=== PATIENT | female | born 1995 | race Hispanic/Latino ===

== ENCOUNTER 2021-06-23 12:02 | Emergency (ER) | payer BC, SELFPAY ==
[2021-06-23] MEDS ORDERED: Dexamethasone 10 MG/ML VIAL ONE (13:05)
== END 2021-06-23 12:57 | disposition home or self-care (01) ==
LOC: CSHERS 12:02
DX: T49.3X1A Poisoning by emollients, demulcents and protectants, accidental (unintentional), initial encounter (principal); L25.3 Unspecified contact dermatitis due to other chemical products
CPT/HCPCS: 96372; 99282; J1100

== ENCOUNTER 2022-09-02 18:08 | Emergency (ER) | payer SELFPAY | END 2022-09-02 19:43 | disposition home or self-care (01) | LOC: CSHERS 18:08 | DX: U07.1 COVID-19 (principal); L02.412 Cutaneous abscess of left axilla | CPT/HCPCS: 99283; U0003; U0005 ==